=== PATIENT | female | born 1965 | race Caucasian/White ===

== ENCOUNTER 2017-07-30 16:21 | Emergency (ER) | payer OTHER ==
[~2017-07-30] VITALS: Ht 177.8 cm; Wt 99.8 kg
[2017-07-30] MEDS ORDERED: NORCO 5-325 TA1 EACH PO (17:12)
[2017-07-30] MEDS ORDERED: IBUPROFEN 600600 M1 PO (17:12)
[2017-07-30] MEDS ORDERED: TIZANIDINE HCL4 MG PO (17:12)
[2017-07-30 18:32] LABS: ABSOLUTE NEUTROPHILS 9.5 thou/uL (1.4-8.2); BASOPHILS 0.6 % (0.0-2.0); EOSINOPHILS 0.6 % (0.0-3.0); HEMATOCRIT 41.2 % (37.0-47.0); HEMOGLOBIN 13.4 gm/dL (12.0-15.0); LYMPHOCYTES 17.1 % (24.0-44.0); MCH 26.9 pg (26.0-34.0); MCHC 32.5 g/dL (28.0-37.0); MCV 82.6 fL (80.0-100.0); MONOCYTES 5.7 % (1.0-8.0); PLATELET COUNT 219 thou/uL (150-400); RBC 4.98 mil/uL (4.20-5.00); RDW 19.9 % (10.5-14.5); WBC 12.5 thou/uL (4.0-11.0)
[2017-07-30 18:33] LABS: MANUAL DIFF NO
[2017-07-30 18:51] LABS: CALCIUM 8.7 mg/dL (8.5-10.1); POTASSIUM 4.1 mmol/L (3.5-5.1)
[2017-07-30 21:01] VITALS: BP 132/65
== END 2017-07-30 21:03 | disposition short-term general hospital (02) ==
LOC: ER 16:21
PROVIDERS: Nurse Practitioner
DX: S40.012A Contusion of left shoulder, initial encounter (principal); R07.81 Pleurodynia; F10.99 Alcohol use, unspecified with unspecified alcohol-induced disorder; Z87.891 Personal history of nicotine dependence; Z90.710 Acquired absence of both cervix and uterus; Z98.890 Other specified postprocedural states; V89.2XXA Person injured in unspecified motor-vehicle accident, traffic, initial encounter; Y93.89 Activity, other specified; Y92.89 Other specified places as the place of occurrence of the external cause; Y99.8 Other external cause status